=== PATIENT | female | born 1995 | race American Indian/Alaskan Native ===

== ENCOUNTER 2017-03-14 17:34 | Emergency (ER) | payer MEDICAID | END 2017-03-14 20:59 | disposition left against medical advice (07) | LOC: ED 17:34 | DX: R10.2 Pelvic and perineal pain (principal); Z53.21 Procedure and treatment not carried out due to patient leaving prior to being seen by health care provider ==

== ENCOUNTER 2018-04-18 12:39 | Emergency (ER) | payer SELFPAY ==
[2018-04-18 13:03] VITALS: BP 137/82
--- NOTE | 2018-04-18 15:20 | Emergency Department Report ---
Vomiting/Diarrhea - HPI Chief Complaint: Abdominal Pain Stated Complaint: ABD PAIN/THROWING UP/NAUSEA Time Seen by Provider: 04/18/18 14:56 Duration: 2 Days Severity: mild Nausea/Vomiting Severity: Mild (3 episodes) Diarrhea Severity: None Pain Location: Other (center) Pain Severity: Mild Symptoms: Yes Able to Tolerate Fluids, No Watery Diarrhea, No Bloody diarrhea, No Fever, No Recent Unusual Foods, No Recent Untreated Water, No Recent use of Antibiotics, No Family w/ Similar Symptoms, No Contacts w/ Similar Symptoms, No Rash, No Hematuria, No Recent URI Symptoms Other History: Patient is here requesting a test as well. Patient is not due for her period for another 12 days. Patient also states that several days ago, condom stuck in the vagina for several hours. Patient was able to remove it as she is currently denying any vaginal bleeding or discharge or dysuria. ED Review of Systems ROS: Stated complaint: ABD PAIN/THROWING UP/NAUSEA Other details as noted in HPI Comment: All other systems reviewed and negative ED Past Medical Hx - Past Medical History Previous Medical History?: No - Surgical History Past Surgical History?: No - Social History Smoking Status: Never Smoker Substance Use Type: None - Medications Home Medications: Home Medications Medication Instructions Recorded Confirmed Last Taken Type metroNIDAZOLE [Nuvessa GEL] 5 gm VG QHS #5 gel.w.appl 08/17/16 Unknown Rx Famotidine [Pepcid] 20 mg PO BID #10 tablet 04/18/18 Unknown Rx Ondansetron [Zofran Odt] 4 mg PO Q8HR PRN #10 tab.rapdis 04/18/18 Unknown Rx Vomiting Diarrhea Exam - Exam General: Vital signs noted. No distress. Alert and acting appropriately. HEENT: Yes Moist Mucous Membranes, No Pharyngeal Erythema, No Pharyngeal Exudates, No Rhinorrhea, No Conjuctival Injection, No Frontal Tenderness, No Maxillary Tenderness Neck: No Adenopathy, No Rigidity Lungs: Yes Clear Lung Sounds, Yes Good Air Exchange, No Wheezes, No Stridor, No Cough, No Nasal Flaring, No Retractions, No Use of Accessory Muscles Heart exam: Regular: Yes, Murmur: No, Tachycardia: No Abdomen: Tenderness: No, Peritoneal Signs: No, Distention: No, Hyperactive Bowel sounds: No Skin exam: Rash: No, Edema: No, Normal turgor: Yes Neurologic: Alert and oriented, no deficits. Musculoskeletal: Unremarkable. ED Course Vital Signs 04/18/18 12:59 Temperature 98.5 F Pulse Rate 85 Respiratory 18 Rate Blood Pressure 137/82 O2 Sat by Pulse 99 Oximetry ED Medical Decision Making - Medical Decision Making Patient be given Zofran for nausea vomiting. Patient is nontoxic appearing. Patient possibly here for confirmation that she is not since she had a condom that was stuck within her several days ago. He is told the patient that even in the event that she may have become several days ago for exactly test at this point would not be positive most likely. Patient is instructed to wait to see if she misses her period and then take a test at that time. Critical care attestation.: If time is entered above; I have spent that time in minutes in the direct care of this critically ill patient, excluding procedure time. ED Disposition Clinical Impression: Gastritis Qualifiers: Gastritis type: unspecified gastritis Chronicity: acute Gastritis bleeding: without bleeding Qualified Code(s): K29.00 - Acute gastritis without bleeding Disposition: DC-01 TO HOME OR SELFCARE Is pt being admited?: No Does the pt Need Aspirin: No Condition: Stable Instructions: Gastritis (ED) Referrals: PRIMARY CARE, [Primary Care Provider] - 3-5 Days
== END 2018-04-18 15:34 | disposition home or self-care (01) ==
LOC: ED 12:39
DX: K29.00 Acute gastritis without bleeding (principal)
CPT/HCPCS: 99282